=== PATIENT | female | born 1985 | race Caucasian/White ===

== ENCOUNTER 2016-08-11 01:19 | Emergency (ER) | payer BC ==
[~2016-08-11] VITALS: Ht 170.2 cm; Wt 61.2 kg
[2016-08-11] MEDS ORDERED: NKM (01:38)
[2016-08-11 01:45] VITALS: BP 115/74
[2016-08-11] MEDS ORDERED: Solu-MEDROL 125mg Inj IVP ONE (02:00)
[2016-08-11] MEDS ORDERED: DiphenhydrAMINE 50mg/ml Inj IVP ONE (02:00)
[2016-08-11] MEDS ORDERED: Ketorolac 30mg Inj ONE (02:29)
--- NOTE | 2016-08-11 02:30 | Emergency Room Report ---
History of Present Illness General Chief Complaint: Allergic Reaction Source: Patient Present Illness HPI Is a 31-year-old female with no significant past medical history. She presents with chief complaint of allergic reaction. She was seen at urgent care couple days ago. She has some vaginal/pelvic pain and diagnosed with group B strep. Initially was started on a 7-based antibiotics. She said she is allergic reaction with itching. It was switched to Omnicef. She she said the symptoms for this. She complaining of tongue swelling and dryness to her mouth. Also complaining of itchy but. No rash. No fever or chills but no nausea no vomiting. She drove here. Allergies: Uncoded Allergies: PENICILLIN (Allergy, Mild, 08/11/16) SULFA (Allergy, Mild, 08/11/16) Patient History Past Medical History: see triage record, old chart reviewed Past Surgical History: none Pertinent Family History: none Social History: Denies: smoking Last Menstrual Period: 07/17/16 Now: No : 0 Para: 0 Immunizations: other Reviewed Nursing Documentation: PMH: Agreed, PSxH: Agreed Review of Systems Eye: Denies: blurred vision, eye pain ENT: Denies: ear pain, nose congestion, throat swelling Respiratory: Denies: cough, shortness of breath Cardiovascular: Denies: chest pain, palpitations Gastrointestinal: Denies: abdominal pain, diarrhea, nausea, vomiting Musculoskeletal: Denies: back pain, joint pain Skin: Denies: rash Neurological: Denies: headache, numbness Endocrine: Denies: increased thirst, increased urine Hematologic/Lymphatic: Denies: easy bruising All Other Systems: negative except mentioned in HPI Physical Exam Vital Signs Date Time Temp Pulse Resp B/P Pulse Ox O2 Delivery O2 Flow Rate FiO2 08/11/16 01:33 97.9 74 14 115/74 99 Room Air vitals normal Sp02 EP Interpretation: reviewed, normal General Appearance: well appearing, no apparent distress, alert Head: normocephalic, atraumatic Eyes: bilateral eye EOMI, bilateral eye PERRL ENT: hearing grossly normal, normal pharynx Neck: full range of motion, supple, no meningismus Respiratory: chest non-tender, lungs clear, normal breath sounds Cardiovascular #1: regular rate, rhythm, no murmur Gastrointestinal: normal bowel sounds, non tender, no mass, no organomegaly, no bruit, non-distended Musculoskeletal: back normal, gait/station normal, normal range of motion Psychiatric: mood/affect normal Skin: warm/dry Medical Decision Making Diagnostic Impression: Primary Impression: Allergic reaction Qualified Codes: T78.40XA - Allergy, unspecified, initial encounter Additional Impression: Pelvic pain ER Course Present with allergic reaction. Her is more symptoms. I see no rash or throat swelling. Lungs are clear. She felt better after Benadryl and Solu-Medrol. While here, she has severe unsure cramps. She said she is about to start her she menstruation. Patient initially she presents with allergic reaction. That resolved and got better. Now she has acute pelvic pain. CT scan unremarkable. She may have a small rupture ovarian cyst since air fluid in the pelvis. She is pain-free now. We'll discharge home. CT/MRI/US Diagnostic Results CT/MRI/US Diagnostic Results : Imaging Test Ordered: CT scan abdomen Impression read by radiologist. Trace fluid in the pelvis. Last Vital Signs Date Time Temp Pulse Resp B/P Pulse Ox O2 Delivery O2 Flow Rate FiO2 08/11/16 01:45 97.9 82 14 115/74 99 Room Air Status: improved Disposition: HOME, SELF-CARE Condition: Stable Scripts Ibuprofen* (MOTRIN*) 600 Mg Tablet 600 MG ORAL THREE TIMES A DAY, #30 TAB 0 Refills Prov: BENITO PARIS M.D. 08/11/16 Patient Instructions: Drug Allergy Additional Instructions: Followup with your DrEric in 3-5 days. Return if symptom worsen. BENITO PARIS M.D. August 11, 2016 02:30
[2016-08-11] MEDS ORDERED: Morphine Sulfate 4mg/ml Inj IVP ONE (02:45)
[2016-08-11] MEDS ORDERED: Ketorolac 30mg Inj IV ONE (02:45)
[2016-08-11] MEDS ORDERED: IBUPROFEN600 MG ORAL (04:51)
[2016-08-11 04:59] VITALS: BP_SYST 115; BP_SYST 120; BP_DIAS 73; BP_DIAS 74
--- NOTE | 2016-08-11 09:20 | Diagnostic Imaging Report ---
Indication: Abdominal pain, vaginal and pelvic pain Technique: Spiral acquisitions obtained through the abdomen and pelvis. No oral contrast utilized, per emergency room physician request No IV contrast utilized, per emergency room physician request.. Multiplanar reconstructions were generated. Total dose length product 723 mGycm. CTDIvol(s) 13 mGy. Dose reduction achieved using automated exposure control Comparison: None Findings: Lack of oral contrast limits assessment of the GI tract. The appendix is not clearly identified, but no findings to suggest acute appendicitis are evident. There is considerable fecal retention. No evidence of diverticulosis or diverticulitis. No small bowel distention. There is trace free pelvic fluid Lack of IV contrast limits assessment of the solid organs. The liver, gallbladder, bile ducts, pancreas, spleen, adrenals, right kidney are unremarkable. The left kidney demonstrates a subcentimeter low-attenuation lesion in the upper pole which is too small to characterize. No pelvic mass or adenopathy. Uterus, adnexa structures, bladder are unremarkable. The included lung bases are clear. The bones are unremarkable except for a small well-circumscribed 1.1 cm osseous sclerotic lesion in the right iliac wing. Impression: Limited exam, as described, the lack of oral and IV contrast Trace free pelvic fluid, likely physiologic Possible constipation 1.1 cm sclerotic lesion right iliac wing, probably benign This agrees with the preliminary interpretation provided overnight by [facility]eradiology service. The CT scanner at [facility] is accredited by the [employer] and the scans are performed using protocols designed to limit radiation exposure to as low as reasonably achievable to attain images of sufficient resolution adequate for diagnostic evaluation.
== END 2016-08-11 04:59 | disposition home or self-care (01) ==
LOC: EMR 01:49
DX: T78.40XA Allergy, unspecified, initial encounter (principal); X58.XXXA Exposure to other specified factors, initial encounter; R10.2 Pelvic and perineal pain
CPT/HCPCS: 74176; 96374; 96375; 99284; J1200; J1885; J2270; J2405; J2930